=== PATIENT | male | born 1930 | race Caucasian/White ===

== ENCOUNTER 2019-01-20 15:16 | Emergency (ER) | payer MEDICARE ==
[~2019-01-20] VITALS: Ht 167.6 cm; Wt 65.8 kg
[2019-01-20 15:29] VITALS: BP 138/65
[2019-01-20] MEDS ORDERED: ACETAMINOPHEN 650 MG/20.3 ML UDC PO ONE (17:00)
[2019-01-20] MEDS ORDERED: ACETAMINOPHEN 325 MG TABLET ONE (17:14)
== END 2019-01-20 17:44 | disposition home or self-care (01) ==
LOC: ER 15:20
DX: M54.2 Cervicalgia (principal); E78.5 Hyperlipidemia, unspecified; Z85.46 Personal history of malignant neoplasm of prostate
CPT/HCPCS: 72125-TC